=== PATIENT | female | born 1950 | race Caucasian/White ===

== ENCOUNTER 2017-06-04 07:44 | Emergency (ER) | payer OTHER, MEDICAID ==
[2017-06-04 16:19] LABS: URINE PH (Dip) POC 5.5 (5.0-8.5)
[2017-06-04 16:19] LABS: URINE BLOOD (Dip) POC Trace-intact (NEGATIVE); URINE GLUCOSE (Dip) POC Negative (NEGATIVE); URINE KETONES (Dip) POC Negative (NEGATIVE); URINE LEUKOCYTE EST (Dip) POC Negative (NEGATIVE); URINE NITRITE (Dip) POC Negative (NEGATIVE); URINE TOTAL PROTEIN POC Negative (NEGATIVE)
[2017-06-04] MEDS: IPRATROPIUM (NEB) 0.5 MG/2.5 ML AMP NEB (16:22)
[2017-06-04] MEDS: ALBUTEROL 0.083% (NEB) 2.5 MG/3 ML AMP NEB (16:22)
== END 2017-06-04 17:07 | disposition home or self-care (01) ==
LOC: FTE 07:44 → E/R 17:07
DX: J20.9 Acute bronchitis, unspecified (principal); B34.9 Viral infection, unspecified; R40.2142 Coma scale, eyes open, spontaneous, at arrival to emergency department; R40.2252 Coma scale, best verbal response, oriented, at arrival to emergency department; R40.2362 Coma scale, best motor response, obeys commands, at arrival to emergency department
CPT/HCPCS: 71010; 81003; 94664; 99284-25

== ENCOUNTER 2018-03-13 17:57 | Emergency (ER) | payer OTHER ==
[2018-03-13 20:12] LABS: URINE BLOOD (Dip) POC 3+ (NEGATIVE); URINE KETONES (Dip) POC Negative (NEGATIVE); URINE LEUKOCYTE EST (Dip) POC 1+ (NEGATIVE); URINE NITRITE (Dip) POC Negative (NEGATIVE); URINE TOTAL PROTEIN POC 1+ (NEGATIVE)
[2018-03-13 20:12] LABS: URINE PH (Dip) POC 5.5 (5.0-8.5)
[2018-03-13] MEDS: IBUPROFEN 600 MG TAB PO (20:51)
== END 2018-03-13 20:56 | disposition home or self-care (01) ==
LOC: FTE 20:56
DX: N30.00 Acute cystitis without hematuria (principal); E11.9 Type 2 diabetes mellitus without complications
CPT/HCPCS: 81003; 99283